=== PATIENT | male | born 1950 ===

== ENCOUNTER 2024-07-10 21:21 | Inpatient (IN) | payer OTHER ==
[~2024-07-10] VITALS: Ht 175.3 cm; Wt 79.0 kg
[~2024-07-10 21:21] MED LIST: Etomidate 2MG / ML 10ML Vial IV ONE; Midazolam HCl 1MG / ML 2ML Vial IV ONE; Naloxone HCl 0.4MG / ML 1ML Vial IV ONE; Propofol 10mg/ml 20 ml Vial (Procedural) IV ONE; Rocuronium Bromide 10 MG/ML 5ML Injection IV ONE
[2024-07-10] MEDS ORDERED: Calcium Gluconate 10% 100 MG/ML INJ ONE (21:56)
[2024-07-10] MEDS ORDERED: Sodium Bicarb 8.4% 1 MEQ/ML 50 ML Vial ONE (21:57)
[2024-07-10 21:58] LABS: BASOPHILS ABSOLUTE AUTO 0.22 K/mm3 (0.00-0.23); BASOPHILS PERCENT AUTO 1 % (0-2); EOSINOPHILS ABSOLUTE AUTO 1.08 K/mm3 (0.00-0.68); EOSINOPHILS PERCENT AUTO 5 % (0-6); Hematocrit 43.8 % (37.0-53.0); Hemoglobin 14.5 g/dL (13.5-17.5); IMMATURE GRAN ABSOLUTE AUTO 0.46 K/mm3 (0.00-0.10); IMMATURE GRAN PERCENT AUTO 2 % (0-1); LYMPHOCYTES ABSOLUTE AUTO 4.23 K/mm3 (0.84-5.20); LYMPHOCYTES PERCENT AUTO 20 % (21-46); MONOCYTES PERCENT AUTO 8 % (4-13); Mean Corpuscular HGB 30.2 pg (26.0-34.0); Mean Corpuscular HGB Conc 33.1 g/dL (31.5-36.5); Mean Corpuscular Volume 91 fL (80-100); Mean Platelet Volume 9.7 fL (9.1-12.4); NEUTROPHILS ABSOLUTE AUTO 13.94 K/mm3 (1.96-9.15); NEUTROPHILS PERCENT AUTO 64 % (41-73); Platelet Count 496 K/mm3 (150-400); RDW Coefficient Variation 14.6 % (11.7-14.2); White Blood Cell Count 21.63 K/mm3 (4.00-11.30)
[2024-07-10 22:14] LABS: D-Dimer, Quantitative 0.54 mg/L FEU (0.00-0.52); International Normalized Ratio 0.96; Prothrombin Time Results 10.3 Sec (9.7-11.5)
[2024-07-10] MEDS ORDERED: propofoL 100 ML IV ONE (22:30)
[2024-07-10] MEDS ORDERED: Albuterol 2.5 MG/3 ML VIAL INH SCH (22:35)
[2024-07-10] MEDS ORDERED: CefTRIAXone Sodium 1,000 MG in NS 100 ML IV ONE (23:10)
[2024-07-10] MEDS ORDERED: fentaNYL citrate 1,000 MCG in NS 80 ML IV SCH (23:10)
[2024-07-10 23:15] LABS: U Amphetamine Screen DETECTED; U Barbituate Screen Not Detected; U Benzodiazapine Screen Not Detected; U Buprenorphine Screen DETECTED; U Cannabinoids Screen Not Detected; U Cocaine Screen Not Detected; U Methadone Screen Not Detected; U Methamphetamine Screen DETECTED; U Opiates Screen Not Detected; U Oxycodone Screen Not Detected; U Phencyclidine Screen Not Detected
[2024-07-10 23:20] LABS: Ethanol (Alcohol), Blood, Med <3 mg/dL
[2024-07-10 23:21] LABS: Acetaminophen, Random <2.0 ug/mL (10.0-30.0); Free Thyroxine 0.96 ng/dL (0.70-1.60)
[2024-07-10 23:23] LABS: Alanine Aminotransfer (ALT/SGP 16 U/L (12-78); Albumin, Blood 2.6 g/dL (3.4-5.0); Albumin/Globulin Ratio 0.7 (0.8-1.8); Alk Phos 97 U/L (50-136); Anion Gap 11 mmol/L (3-11); Aspartate Aminotrans (AST/SGOT 13 U/L (12-37); Bilirubin, Total 0.2 mg/dL (0.1-1.0); Blood Urea Nitrogen 26 mg/dL (8-24); Bun/Creatinine Ratio 16.8 (12.0-20.0); CO2, Blood 24 mmol/L (21-32); Calcium, Blood 8.3 mg/dL (8.5-10.1); Chloride, Blood 110 mmol/L (98-108); Creatinine, Blood 1.55 mg/dL (0.60-1.20); Globulin, Blood 3.6 g/dL (2.2-4.0); Glomerular Filtration Rate 46 (60-); Glucose, Blood 104 mg/dL (70-99); Potassium, Blood 4.3 mmol/L (3.5-5.5); Sodium, Blood 141 mmol/L (136-145); Total Protein, Blood 6.2 g/dL (6.4-8.2)
[2024-07-10 23:30] LABS: Base Excess Venous -1.9 mmol/L; Bicarbonate Venous 22.4 mmol/L (24.0-30.0); PCO2 Venous 50.1 mmHg (38-42)
[2024-07-10 23:43] LABS: Source, Urine Straight Cath
[2024-07-10 23:46] LABS: Bilirubin, Urine Neg (Neg); Blood, Urine Neg (Neg); Glucose Qualitative, Urine Neg (Neg); Ketones, Urine Neg (Neg); Leukocyte Esterase, Urine 1+ (Neg); Nitrite, Urine Neg (Neg); Protein, Urine 2+ (Neg); Specific Gravity, Urine 1.015 (1.003-1.022); Urobilinogen, Urine NORM (Normal)
[2024-07-11] VITALS (52 sets, daily range): BP systolic 92–189; BP diastolic 51–93
[2024-07-11 00:04] LABS: Appearance, Urine Hazy (Clear); Color, Urine Yellow (P-Yellow)
[2024-07-11] MEDS ORDERED: NS 1,000 ML IV ONE (00:06)
[2024-07-11 00:15] LABS: Bacteria Mod /hpf; Red Blood Cells, Urine 0-2 /hpf (0-2); Squamous Epithelial Cells Few /hpf (Few); White Blood Cells, Urine 0-2 /hpf (0-5)
[2024-07-11 00:22] LABS: Calcium Oxalate Crystals Mod /hpf
[2024-07-11] MEDS ORDERED: Cetylpyridinium Chloride 1 EA MISC MT SCH (00:45)
[2024-07-11] MEDS ORDERED: NS 1,000 ML IV SCH (00:45)
[2024-07-11] MEDS ORDERED: Ondansetron HCl 2 MG / ML 2ML Vial IV PRN (00:50)
[2024-07-11] MEDS ORDERED: FLU VACC TS2024-25(6MOS UP)/PF 45 MCG/0.5 ML SYRINGE IM ONE (00:50)
[2024-07-11 01:02] LABS: Magnesium, Blood 2.4 mg/dL (1.6-2.4)
[2024-07-11] MEDS ORDERED: Midazolam HCL 50 MG in NS 40 ML IV SCH (01:10)
[2024-07-11] MEDS ORDERED: Albumin (Human) 25gm/100ml 100 ML IV ONE (01:10)
[2024-07-11] MEDS ORDERED: Midazolam HCl 1MG / ML 2ML Vial ONE (01:13)
[2024-07-11 01:51] LABS: Base Excess Venous -6.6 mmol/L; Bicarbonate Venous 19.1 mmol/L (24.0-30.0); pH Blood Venous 7.27 (7.34-7.37)
[2024-07-11 03:23] LABS: BASOPHILS ABSOLUTE AUTO 0.13 K/mm3 (0.00-0.23); BASOPHILS PERCENT AUTO 1 % (0-2); EOSINOPHILS PERCENT AUTO 4 % (0-6); Hematocrit 34.4 % (37.0-53.0); Hemoglobin 11.5 g/dL (13.5-17.5); IMMATURE GRAN ABSOLUTE AUTO 0.32 K/mm3 (0.00-0.10); IMMATURE GRAN PERCENT AUTO 2 % (0-1); LYMPHOCYTES PERCENT AUTO 21 % (21-46); MONOCYTES ABSOLUTE AUTO 0.95 K/mm3 (0.16-1.47); MONOCYTES PERCENT AUTO 6 % (4-13); Mean Corpuscular HGB 30.1 pg (26.0-34.0); Mean Corpuscular HGB Conc 33.4 g/dL (31.5-36.5); Mean Corpuscular Volume 90 fL (80-100); Mean Platelet Volume 8.9 fL (9.1-12.4); NEUTROPHILS ABSOLUTE AUTO 9.93 K/mm3 (1.96-9.15); NEUTROPHILS PERCENT AUTO 66 % (41-73); Platelet Count 431 K/mm3 (150-400); RDW Coefficient Variation 14.2 % (11.7-14.2); RDW Standard Deviation 46.8 fL (35.1-46.3); Red Blood Cell Count 3.82 M/mm3 (4.30-5.90); White Blood Cell Count 15.03 K/mm3 (4.00-11.30)
[2024-07-11 03:45] LABS: Albumin, Blood 2.9 g/dL (3.4-5.0); Albumin/Globulin Ratio 0.8 (0.8-1.8); Bilirubin, Total 0.3 mg/dL (0.1-1.0); Bun/Creatinine Ratio 17.6 (12.0-20.0); Calcium, Blood 8.3 mg/dL (8.5-10.1); Creatinine, Blood 1.42 mg/dL (0.60-1.20); Globulin, Blood 3.7 g/dL (2.2-4.0); Total Protein, Blood 6.6 g/dL (6.4-8.2)
[2024-07-11] MEDS ORDERED: Hydrogen Peroxide 1.5 % Solution MT SCH (04:00)
[2024-07-11 05:24] LABS: Influenza A, PCR NEGATIVE (NEGATIVE); Influenza B, PCR NEGATIVE (NEGATIVE); Resp Syncytial Virus, PCR NEGATIVE (NEGATIVE); SARS-Cov-2 (COVID-19) PCR, MMC NEGATIVE (NEGATIVE)
[2024-07-11 06:10] LABS: Base Excess Venous -0.4 mmol/L; Bicarbonate Venous 24.3 mmol/L (24.0-30.0); PCO2 Venous 36.8 mmHg (38-42)
[2024-07-11 06:11] LABS: pH Blood Venous 7.42 (7.34-7.37)
[2024-07-11] MEDS ORDERED: Ampicillin Sod/Sulbactam Sod 3 GM in NS 100 ML IV SCH (07:00)
--- NOTE | 2024-07-11 08:02 | NUR ---
AM NOTE... ASSUMED CARE OF PT AT 0700 PT IS INTUBATED AND SEDATED, VERSED GTT RUNNING AT 2MG/HR, PROPOFOL GTT RUNNING AT 15MCG/KG. LEVOPHED GTT WAS RUNNING AT 1MCG/MIN TO KEEP MAPS >65 THIS WAS STOPPED WHEN MAPS WERE >75. PT IS IN SR/ FIRST DEGREE IN THE 60'S. NO SWELLING OR EDEMA NOTED ON THIS ASSESSMENT. PT'S VENT SETTINGS ARE : AC/VC: 22/530/5/30% WITH O2 SATS>95% L/S CLEAR T/O ALL [place]STIAN[place] DIM IN THE BASES. BT PRESENT AND HYPOACTIVE, OG TUBE IS CLAMPED AT THIS TIME. TEMP ALICEA IS PATENT AND DRAINING YELLOW URINE TO GRAVITY. TEMP AT THE START OF THIS SHIFT WAS 99.5.
[2024-07-11] MEDS ORDERED: Enoxaparin 40 MG/0.4 ML SYR SC SCH (09:00)
[2024-07-11] MEDS ORDERED: Pantoprazole Sodium 40 MG Injection IV SCH (09:00)
[2024-07-11] MEDS ORDERED: Lactated Ringer's 1,000 ML IV SCH (09:55)
[2024-07-11] MEDS ORDERED: propofoL 100 ML IV ONE (10:02)
[2024-07-11] MEDS ORDERED: propofoL 100 ML IV SCH (10:10)
[2024-07-11] MEDS ORDERED: dexmedeTOMIDine 100 ML IV SCH (10:15)
--- NOTE | 2024-07-11 15:13 | NUR ---
PT UPDATE... PT WAS EXTUBATED TO RA AT 1140, PT WAS STARTED ON PRECEDEX GTT AND THE PROPOFOL WAS STOPPED. THE PT WAS VERY AGITATED AND NO COMPLIANT WITH STAFF'S REQUESTS TO BE CALM AND FOLLOW COMMANDS. IT TOOK 3 STAFF TO HELP HOLD THE PT STILL LONG ENOUGH FOR RT TO EXTUBATE THE PT. ONCE EXTUBATED THE PT ATTEMPTED TO PULL OUT THE RIGHT GROIN CENTRAL LINE AND HIS ALICEA. BOTH CENTRAL LINE AND ALICEA WERE REMOVED WNL.
[2024-07-11] MEDS ORDERED: IBUP800 PO (17:36)
[2024-07-11] MEDS ORDERED: Voltaren100 GM TOP (17:37)
[2024-07-11] MEDS ORDERED: BACL10 PO (17:37)
[2024-07-11] MEDS ORDERED: ALBU90OI INH (17:38)
--- NOTE | 2024-07-11 18:20 | NUR ---
SHIFT SUMMARY.... NO ACUTE NEGATIVE CHANGES ASSESSED SINCE PREVIOUS NOTE. PT'S MENTATION HAS IMPROVED GREATLY, HE IS CURRENTLY ABLE TO FOLLOW COMMANDS, PT THOUGHT THE DATE WAS 1994, PT WAS UNABLE TO STATE THE MONTH. PT RECOGNIZED HIS SON WHEN HE ARRIVED AT THE BEDSIDE. THE PT WAS ABLE TO STAND AT THE SIDE OF THE BED AND WALK TO THE TOILET WITH STAFF ASSIST. PROVIDER WAS NOTIFIED OF THE IMPROVMENTS THIS AFTERNOON, NEW ORDERS FOR MED TRANSFER WERE GIVEN. THE PT'S SON FLAQUITO WAS ASKED TO TAKE THE PT'S WALLET HOME WITH HIM. CALL LIGHT IN REACH, BED ALARM IS ON WILL REPORT TO ONCOMING RN.
[2024-07-11] MEDS ORDERED: CefTRIAXone Sodium 1,000 MG in NS 100 ML IV SCH (21:00)
--- NOTE | 2024-07-11 22:05 | NUR ---
AMA AT APPROXIMATELY 2155, PT GOT OUT OF BED, REMOVED GOWN, ALL MONITORING EQUIPMENT, AND PULLED OUT IV. PT STATES "I'M LEAVING AND YOU CAN'T STOP ME." PT IS BEING IMPULSIVE AND UNCOOPERATIVE. DOES NOT CALM WITH REASSURANCE AND IS NOT REDIRECTABLE. ORIENTED TO SELF, PLACE, AND TO THE YEAR. REFUSES TO STAY IN HOSPITAL. DR. RAMIREZ NOTIFIED OF PT'S WISH TO LEAVE. AMA PAPERS SIGNED BY PATIENT AND THEN HE WAS ESCORTED OUT BY SECURITY.
== END 2024-07-11 22:05 | disposition left against medical advice (07) | DRG 871 ==
LOC: ER 21:21 → ICUE 07-11 01:23
PROVIDERS: Student in an Organized Health Care Education/Training Program; ADMIT Internal Medicine
PROC: 5A1935Z Respiratory Ventilation, Less than 24 Consecutive Hours (ICD-10-PCS; principal; 2024-07-10)
PROC: 0BH17EZ Insertion of Endotracheal Airway into Trachea, Via Natural or Artificial Opening (ICD-10-PCS; 2024-07-10)
PROC: 06HY33Z Insertion of Infusion Device into Lower Vein, Percutaneous Approach (ICD-10-PCS; 2024-07-10)
PROC: 3E03329 Introduction of Other Anti-infective into Peripheral Vein, Percutaneous Approach (ICD-10-PCS; 2024-07-10)
PROC: 3E033XZ Introduction of Vasopressor into Peripheral Vein, Percutaneous Approach (ICD-10-PCS; 2024-07-10)
DX: A41.9 Sepsis, unspecified organism (principal); G92.8 Other toxic encephalopathy; J69.0 Pneumonitis due to inhalation of food and vomit; J96.01 Acute respiratory failure with hypoxia; R65.21 Severe sepsis with septic shock; J18.9 Pneumonia, unspecified organism; I21.A1 Myocardial infarction type 2; N17.9 Acute kidney failure, unspecified; E87.21 Acute metabolic acidosis; R65.20 Severe sepsis without septic shock; F15.10 Other stimulant abuse, uncomplicated; R68.0 Hypothermia, not associated with low environmental temperature; E88.09 Other disorders of plasma-protein metabolism, not elsewhere classified; E86.0 Dehydration; Z53.29 Procedure and treatment not carried out because of patient's decision for other reasons
CPT/HCPCS: 0241U; 31500; 36415; 36556; 51702; 70450; 70496; 70498; 71045; 71260; 74177; 80053; 80320; 81001; 82140; 82550; 82803; 83605; 83735; 83880; 84439; 84443; 84484; 85025; 85379; 85610; 85730; 87040; 87086; 93005; 93010; 93306; 94002; 94003; 94644; 94664; 96365-59; 96375-59; 99291-25; 99292; C1751; G0480; J0295; J0612; J0696; J1650; J2250; J2310; J2470; J2704; J3010; J7030; J7060; J7120; P9047; Q9967

== ENCOUNTER 2024-07-28 10:27 | Observation (INO) | payer OTHER ==
[~2024-07-28] VITALS: Ht 175.3 cm; Wt 79.4 kg
[~2024-07-28 10:27] MED LIST changes: +ALBU90OI INH; +BACL10 PO; -Etomidate 2MG / ML 10ML Vial IV ONE; +IBUP800 PO; -Midazolam HCl 1MG / ML 2ML Vial IV ONE; -Naloxone HCl 0.4MG / ML 1ML Vial IV ONE; -Propofol 10mg/ml 20 ml Vial (Procedural) IV ONE; -Rocuronium Bromide 10 MG/ML 5ML Injection IV ONE; +Voltaren100 GM TOP
[2024-07-28 11:04] LABS: BASOPHILS ABSOLUTE AUTO 0.12 K/mm3 (0.00-0.23); BASOPHILS PERCENT AUTO 1 % (0-2); EOSINOPHILS ABSOLUTE AUTO 0.66 K/mm3 (0.00-0.68); EOSINOPHILS PERCENT AUTO 6 % (0-6); Hematocrit 38.5 % (37.0-53.0); IMMATURE GRAN ABSOLUTE AUTO 0.08 K/mm3 (0.00-0.10); IMMATURE GRAN PERCENT AUTO 1 % (0-1); LYMPHOCYTES ABSOLUTE AUTO 3.21 K/mm3 (0.84-5.20); LYMPHOCYTES PERCENT AUTO 31 % (21-46); MONOCYTES ABSOLUTE AUTO 0.99 K/mm3 (0.16-1.47); MONOCYTES PERCENT AUTO 10 % (4-13); Mean Corpuscular HGB 30.4 pg (26.0-34.0); Mean Corpuscular HGB Conc 33.8 g/dL (31.5-36.5); Mean Corpuscular Volume 90 fL (80-100); Mean Platelet Volume 9.3 fL (9.1-12.4); NEUTROPHILS ABSOLUTE AUTO 5.28 K/mm3 (1.96-9.15); NEUTROPHILS PERCENT AUTO 51 % (41-73); Platelet Count 354 K/mm3 (150-400); RDW Coefficient Variation 14.7 % (11.7-14.2); RDW Standard Deviation 48.4 fL (35.1-46.3); Red Blood Cell Count 4.27 M/mm3 (4.30-5.90); White Blood Cell Count 10.34 K/mm3 (4.00-11.30)
[2024-07-28 11:26] LABS: Albumin, Blood 3.7 g/dL (3.4-5.0); Albumin/Globulin Ratio 0.9 (0.8-1.8); Bilirubin, Total 0.6 mg/dL (0.1-1.0); Calcium, Blood 8.6 mg/dL (8.5-10.1); Creatinine, Blood 0.93 mg/dL (0.60-1.20); Magnesium, Blood 2.1 mg/dL (1.6-2.4); Potassium, Blood 3.8 mmol/L (3.5-5.5); Total Protein, Blood 7.7 g/dL (6.4-8.2)
[2024-07-28 14:06] LABS: U Amphetamine Screen Not Detected; U Barbituate Screen Not Detected; U Benzodiazapine Screen Not Detected; U Buprenorphine Screen DETECTED; U Cannabinoids Screen Not Detected; U Cocaine Screen Not Detected; U Methadone Screen Not Detected; U Methamphetamine Screen Not Detected; U Opiates Screen Not Detected; U Oxycodone Screen Not Detected; U Phencyclidine Screen Not Detected
[2024-07-28] MEDS ORDERED: FLU VACC TS2024-25(6MOS UP)/PF 45 MCG/0.5 ML SYRINGE IM SCH (14:25)
[2024-07-28 16:37] VITALS: BP 170/74
[2024-07-28] MEDS ORDERED: BELBUCA450 MCG BC ×2 (16:45→17:11)
[2024-07-28] MEDS ORDERED: GABA300 PO (16:46)
[2024-07-28] MEDS ORDERED: DULOXETINE HCL40 M1 PO (16:47)
[2024-07-28] MEDS ORDERED: OMEP20ER PO (16:48)
[2024-07-28] MEDS ORDERED: AMLO10 PO (16:49)
[2024-07-28] MEDS ORDERED: ALBU2.5V5 INH (17:06)
[2024-07-28] MEDS ORDERED: Cymbalta20 MG PO (17:12)
[2024-07-28] MEDS ORDERED: GABAPENTIN600 MG PO (17:13)
[2024-07-28] MEDS ORDERED: LIDO700A20 TOP (17:14)
[2024-07-28] MEDS ORDERED: NALOXONE HCL4 MG (17:16)
--- NOTE | 2024-07-28 19:54 | NUR ---
ADMIT NOTE PATIENT BROUGHT UP FROM ER. A/OX4. ROOM AIR. NO CURRENT CHEST PAIN/PRESSURE TRENDING TROPONINS. RIGHT AC IV. STARTED ON HEART HEALTHY DIET. STAND-BY ASSIST TO BATHROOM.
[2024-07-28 20:00] VITALS: BP 159/80
[2024-07-28] MEDS ORDERED: AmLODIPine Besylate 5 MG Tab PO ONE (21:30)
[2024-07-29 01:12] VITALS: BP 140/71
[2024-07-29 03:45] VITALS: BP 143/76
--- NOTE | 2024-07-29 06:15 | NUR ---
SHIFT SUMMARY PATIENT IS RESTING IN BED AND HAS BEEN SLEEPING BETWEEN NURSING CARE. COMPUTER PATTERNMAKER CALLED TO SAY PATIENT HAS BEEN HAVING FREQUENT PVC'S. MD WAS NOTIFIED AND AM LABS HAVE BEEN ORDERED. PATIENT IS ORIENTED X4. HE HAS HIS CALL LIGHT WITHIN REACH. NO COMPLAINTS OF PAIN. SAFETY PRECAUTIONS ARE BEING MAINTAINED.
[2024-07-29 06:54] LABS: BASOPHILS ABSOLUTE AUTO 0.12 K/mm3 (0.00-0.23); BASOPHILS PERCENT AUTO 2 % (0-2); EOSINOPHILS ABSOLUTE AUTO 0.72 K/mm3 (0.00-0.68); EOSINOPHILS PERCENT AUTO 10 % (0-6); Hematocrit 36.3 % (37.0-53.0); Hemoglobin 12.4 g/dL (13.5-17.5); IMMATURE GRAN ABSOLUTE AUTO 0.03 K/mm3 (0.00-0.10); IMMATURE GRAN PERCENT AUTO 0 % (0-1); LYMPHOCYTES ABSOLUTE AUTO 2.45 K/mm3 (0.84-5.20); LYMPHOCYTES PERCENT AUTO 36 % (21-46); MONOCYTES ABSOLUTE AUTO 0.86 K/mm3 (0.16-1.47); MONOCYTES PERCENT AUTO 13 % (4-13); Mean Corpuscular HGB 30.6 pg (26.0-34.0); Mean Corpuscular HGB Conc 34.2 g/dL (31.5-36.5); Mean Corpuscular Volume 90 fL (80-100); Mean Platelet Volume 9.4 fL (9.1-12.4); NEUTROPHILS ABSOLUTE AUTO 2.72 K/mm3 (1.96-9.15); NEUTROPHILS PERCENT AUTO 40 % (41-73); Platelet Count 291 K/mm3 (150-400); RDW Coefficient Variation 14.6 % (11.7-14.2); RDW Standard Deviation 47.4 fL (35.1-46.3); Red Blood Cell Count 4.05 M/mm3 (4.30-5.90)
[2024-07-29 07:15] LABS: Bun/Creatinine Ratio 33.1 (12.0-20.0); Calcium, Blood 9.1 mg/dL (8.5-10.1); Creatinine, Blood 0.72 mg/dL (0.60-1.20)
[2024-07-29 07:18] VITALS: BP 146/75
[2024-07-29] MEDS ORDERED: Enoxaparin 40 MG/0.4 ML SYR SC SCH (09:00)
--- NOTE | 2024-07-29 11:16 | NUR ---
DISCHARGE NOTE PATIENT EDUCTAED ON DISCHARGE PACKET. IV REMOVED. VEHICLE IS PARKED AT MD AND HIP HOP PERFORMERS ATTEMPTING TO ARRANGE RIDE OVER TO [facility].
--- NOTE | 2024-07-29 11:27 | NUR ---
PATIENT CALLED JACQUELYN TO TAKE HIM OVER TO [facility].
== END 2024-07-29 11:27 | disposition home or self-care (01) ==
LOC: ER 10:27 → MEDS 10:28
PROVIDERS: Internal Medicine; Student in an Organized Health Care Education/Training Program; ADMIT Family Medicine
DX: I21.4 Non-ST elevation (NSTEMI) myocardial infarction (principal); D64.9 Anemia, unspecified; F19.90 Other psychoactive substance use, unspecified, uncomplicated; Z53.21 Procedure and treatment not carried out due to patient leaving prior to being seen by health care provider; Z79.899 Other long term (current) drug therapy
CPT/HCPCS: 36415; 71045; 80048; 80053; 83735; 84484; 85025; 93005; 93010; 96372; 99285-25; A9270; G0378; J1650